=== PATIENT | female | born 1980 | race Caucasian/White ===

== ENCOUNTER 2018-12-29 15:00 | Inpatient (IN) ==
[2018-12-29] MEDS ORDERED: Ringers Solution, Lactated 1,000 ML ONE (16:01)
[2018-12-29] MEDS ORDERED: Metoclopramide 10 MG/2 ML VIAL IVP ONE (16:09)
[2018-12-29] MEDS ORDERED: Famotidine 20 MG/2 ML VIAL IVP ONE (16:09)
[2018-12-29] MEDS ORDERED: CeFAZolin Syr 3,000MG/30 ML 3,000 MG/30 ML SYRINGE IVPB ONE (16:09)
[2018-12-29] MEDS ORDERED: Ringers Solution, Lactated 1,000 ML IVC ONE (16:09)
--- NOTE | 2018-12-29 16:12 | Anesthesia Evaluation PreOp ---
Date of Encounter: 12/29/18 Time of Encounter: 16:00 - Past History Planned Operation: Cardiac History: Denies any Significant Hx Pulmonary History: Denies Any Significant HX SENIOR PAINTER History: Denies Any Significant HX Other Medical History: Thyroid Anesthesia History: No Prior Anesthetic Complications : Yes (39 weeks) Alcohol Use: none Drug use: none Medications and Allergies Allergy/AdvReac Type Severity Reaction Status Date / Time No Known Allergies Allergy Verified 06/07/18 20:07 - Meds/Allergy Pre-op Review Medications Reviewed: Yes Allergies Reviewed: Yes Beta Blockers on Current Med List: No Anesthesia Results - Labs Laboratory Tests 06/07/18 10/16/18 20:15 09:05 Hgb 10.8 L Hct 34.6 L Plt Count 330 Sodium 135 L Potassium 4.0 BUN 11 Creatinine 0.68 Anesthesia Exam Height: 5'8 Weight: 302 lbs NPO (# of Hours): MN Pain Scale: 0 - HEENT Pupil (Motor): Pupils equal, EOMI Mallampati: III Teeth: Normal Oral Opening: Less than or equal to 3 - SENIOR PAINTER LOC: Oriented SENIOR PAINTER Motor: Normal RUE, Normal LUE, Normal RLE, Normal LLE, Normal Face SENIOR PAINTER Sensory: Normal: RUE, LUE, RLE, LLE, Face - Cardiac Rhythm: Regular Murmur: None JVD: No Carotid Bruit: No - Pulmonary Breath Sounds: bilateral Clear Respiratory Effort: Symmetrical Anesthesia Assess/Plan ASA Score: 2 Level of consciousness: Cooperative, Oriented Anesthetic Plan: Spinal Autologous Blood: No Monitoring Plan: Standard Monitors Recovery Plan: PACU (Discussed SAB, possible GA, agrees to proceed)
[2018-12-29] MEDS ORDERED: *HR* OxyCODONE/APAP 5/325 TABLET PO PRN ×2 (16:14→21:05)
[2018-12-29] MEDS ORDERED: Ondansetron 4 MG/2 ML VIAL IVP PRN ×2 (16:14→21:05)
[2018-12-29] MEDS ORDERED: Ibuprofen 400 MG TABLET PO PRN (16:14)
[2018-12-29] MEDS ORDERED: Oxytocin 20 units/ LR 1000 mL 20 UNIT/1,000 ML BAG IVC SCH ×2 (16:15→21:05)
[2018-12-29 16:29] LABS: Basophils % 0.1 %; Eosinophils # 0.1 K/mcL (0.0-0.6); Eosinophils % 0.6 %; Hematocrit 36.3 % (35.3-44.9); Hemoglobin 11.9 g/dL (11.5-15.4); Immature Granulocytes % 0.7 % (0-4); Lymphocytes # 1.4 K/mcL (0.6-4.6); Lymphocytes % 10.3 %; Mean Corpuscular HGB Conc 32.8 g/dL (31.6-35.5); Mean Corpuscular Hemoglobin 30.5 pg (28.0-33.3); Mean Corpuscular Volume 93.1 fL (83.0-100.0); Mean Platelet Volume 10.6 fL (9.4-12.4); Monocytes # 0.7 K/mcL (0.0-1.3); Monocytes % 4.8 %; Neutrophils # 11.5 K/mcL (1.6-8.9); Platelet Count 317 K/mcL (140-400); Red Cell Distribution Width 14.8 % (11.5-14.5); Segmented Neutrophils % 83.5 %; White Blood Count 13.8 K/mcL (4.3-11.1)
[2018-12-29] MEDS ORDERED: *HR* Vasopressin 20 UNIT/ML VIAL IM ONE (16:35)
--- NOTE | 2018-12-29 16:57 | History & Physical Report ---
Date of Encounter: 12/29/18 Time of Encounter: 16:56 24 Hour HP Update - Instructions Instructions: If the History and Physical is less than 30 days old and was completed prior to A.M. admission and or procedure and has NOT been updated on calendar day of procedure please complete this update prior to performing procedure. - Update Patient reports changes in Medical Condition: No Changes in examination, assessment, or condition: No Changes in Medication: No Preop tests/diagnostics Reviewed: Yes Pre-Op MRSA Screen: Negative Surgery Remains Indicated: Yes Consent for Planned Operative Procedure(s) Verified: Yes - Pre-Operative Checklist Preoperative Checklist Indicated: Yes Prophylactic Antibiotic Ordered: Yes Home Medications Include Beta Hui: No Beta Hui Taken Today (Day of Surgery): No Beta Hui Taken Yesterday (Day Prior to Surgery): No Is VTE Prophylaxis Indicated?: Yes
[2018-12-29] MEDS ORDERED: 0.9 % Sodium Chloride Mini Bag 100 ML ONE (16:58)
[2018-12-29] MEDS ORDERED: Acetaminophen IV 1,000 MG/100 ML INFUS..BTL IVPB SCH (18:00)
--- NOTE | 2018-12-29 18:10 | OB/GYN Procedure Note ---
Section - Date of procedure: 12/29/18 Preop diagnosis: other (uterine leiomyoma) Post-op diagnosis: same Procedure: primary low transverse Surgeon: Mickie Howard Blood Loss: 500 Was there an event marketing assistant present: Yes Pharmacist In Charge: Silver Goldstein Private Pilot: Isis Fox Anesthesia Type: Spinal section complications: none Disposition: Post floor - Infant (s) Infant A Infant Delivery Date: 12/29/18 Infant Delivery Time: 17:39 Presentation: vertex Position: unknown Route of delivery: other ( section) Gender: Female Viability: Viable Pounds: 7 Ounces: 3 Gram Weight: 3265 kg at 1 minute: 9 at 5 minutes: 10 Shoulder Dystocia: not encountered Placenta: partial extraction Cord: nuchal reduced - Narrative Narrative: Preoperative diagnosis: Uterine leiomyoma, primary section Postoperative diagnosis: Same anesthesia: Spinal Surgeon Dr. Urban Pharmacist In Charge: Dr. Delgadillo. Asst. present due to large nature of uterine fibroids and risk of hemorrhage Anesthesia: Spinal Findings: Enlarged uterus. 13-14 cm lower uterine segment posterior fibroid emanating emanate down into the pelvis. Normal uterus. Normal ovaries. Normal fallopian tube. Patient was taken to the operating suite and after adequate spinal anesthesia was assured she is prepped and draped in the usual sterile fashion. A penicillin incision was created and taken down through the subcutaneous fat and fascia to the rectus muscles. Rectus muscles were divided in midline and the peritoneal cavity was entered without consequence to bowel or bladder. The pelvis and uterus were systematically inspected and the findings were as noted above. A 5 low transverse incision was made within the uterine wall. Clear fluid was noted. A viable female was atraumatically delivered without difficulty. There was a loose nuchal cord present. Cord was doubly cut and clamped clamped and cut and the baby was handed to the nurses in attendance. Apgars were 9 and 10 at one and 5 minutes respectively. When all placental fragments were swept clean to the uterus the uterus was closed in one length of Vicryl in a running interlocked fashion. Copious irrigation was performed. Surgical site hemostasis was assured. Adnexa and uterus were once again evaluated. The decision was made not to entrap the uterine fibroid due to the risk of bleeding in the location of the fibroid deep within the pelvis. This was reviewed with the patient and her . The uterus was replaced within the abdominal cavity. Again copious irrigation was performed. Surgical site hemostasis was assured. All sponge lap and needle and counts were assured to be correct 2. The fascia was closed in a running fashion. The subcuticular tissue was reapproximated with interrupted sutures. The skin was closed with nixon. At the end of the procedure mother and the baby were both doing very well. Again sponge lap needle and isthmic counts were correct 2. Estimated blood loss was 500 mL.
[2018-12-29] MEDS ORDERED: Acetaminophen 325 MG TABLET PO PRN (21:05)
[2018-12-29] MEDS ORDERED: Metoclopramide 10 MG/2 ML VIAL IVP PRN (21:05)
[2018-12-29] MEDS ORDERED: Simethicone 80 MG TAB.CHEW PO PRN (21:05)
[2018-12-29] MEDS ORDERED: Sennosides 8.6 MG TABLET PO PRN (21:05)
[2018-12-29] MEDS ORDERED: Rho Immune Globulin 1,500 UNIT SYRINGE IM PRN (21:05)
--- NOTE | 2018-12-29 21:14 | Anesthesia Evaluation Post Op ---
Date of Encounter: 12/29/18 Time of Encounter: 19:28 - Vital Signs Vital Signs: VSS throughout pacu stay. - Lungs Lungs: Clear Ascult./Percussion - Airway Airway: Non-obstructed - Cardiovascular Regular Rate - Mental Status Mental Status: Alert & Oriented, Answers Appropriately - Pain Pain Scale: 2 Pain Scale used: Numeric (1 - 10) - Nausea Vomiting Nausea Vomiting: Not Present - Hydration Hydration: NPO, Hoskins catheter - Discharge PostOp Status: Transfer Patient to floor
[2018-12-30] MEDS: cefOXitin 1,000 MG in 0.9 % Sodium Chloride Mini Bag 100 ML IVPB SCH ×2 (01:09→08:09)
[2018-12-30] MEDS: Ibuprofen 600 MG TABLET PO PRN ×4 (01:11→21:42)
[2018-12-30 06:57] LABS: Basophils % 0.1 %; Eosinophils % 0.1 %; Hematocrit 28.1 % (35.3-44.9); Immature Granulocytes % 0.6 % (0-4); Lymphocytes # 0.9 K/mcL (0.6-4.6); Lymphocytes % 6.8 %; Mean Corpuscular HGB Conc 33.1 g/dL (31.6-35.5); Mean Corpuscular Volume 93.7 fL (83.0-100.0); Mean Platelet Volume 10.4 fL (9.4-12.4); Monocytes % 7.2 %; Neutrophils # 11.6 K/mcL (1.6-8.9); Platelet Count 233 K/mcL (140-400); Red Cell Distribution Width 14.9 % (11.5-14.5); Segmented Neutrophils % 85.2 %; White Blood Count 13.7 K/mcL (4.3-11.1)
[2018-12-30 07:01] LABS: Hemoglobin 9.3 g/dL (11.5-15.4)
[2018-12-30] MEDS: Prenatal Vit/FA 1 EACH TABLET PO SCH (08:08)
--- NOTE | 2018-12-30 09:11 | OB/GYN Progress Note ---
Date of Encounter: 12/30/18 Time of Encounter: 09:08 - Assessment and Plan (1) Status post delivery Current Visit: Yes Status: Acute Stable POD #1 Continue current management Anticipate discharge (2) Acute blood loss anemia Current Visit: Yes Status: Acute Continue and discharge home on iron Subjective - Subjective Interval history: Stable, pain well managed, tolerating diet, breast feeding, Patient reports: appetite normal, voiding normally, pain well controlled, ambulating normally [place]: doing well, nursing well Objective - Vital Signs Latest vital signs: Vital Signs Temp Pulse Resp BP Pulse Ox 12/30/18 08:34 98.2 F 91 14 109/63 98 12/30/18 06:23 97.6 F 88 15 108/68 97 12/30/18 00:00 97.9 F 90 15 99/57 96 12/29/18 23:18 98.1 F 94 15 119/73 97 12/29/18 22:05 97.3 F L 98 15 106/73 98 12/29/18 21:30 98.4 F 93 16 122/71 97 12/29/18 21:09 98.1 F 97 15 138/78 97 Intake and Output 12/29/18 12/30/18 12/30/18 23:59 07:59 15:59 Intake Total 100 / 100 Output Total 200 / 200 300 / 300 Balance -200 / -200 -200 / -200 Intake: IV Fluids 100 / 100 Mefoxin 1,000 MG In 0.9 % 100 / 100 Sodium Chloride (Mini-Bag +) 100 ML @ 200 mls/hr IVPB Q8HR [facility] Rx#:[id number] Oral 0 / 0 Output: Catheter 200 / 200 300 / 300 Other: Stool Characteristics Normal for Patient Weight 136.985 kg - Exam Lungs: bilateral: normal Chest: Normal S1, Normal S2 Abdomen: Present: soft, gravid Incision: Present: intact, dressed Uterus: Present: firm (U) - Labs Labs: Laboratory Results - last 24 hr 12/29/18 12/30/18 16:13 06:17 WBC 13.8 H 13.7 H RBC 3.90 3.00 L Hgb 11.9 9.3 L D Hct 36.3 28.1 L MCV 93.1 93.7 MCH 30.5 31.0 MCHC 32.8 33.1 RDW 14.8 H 14.9 H Plt Count 317 233 MPV 10.6 10.4 Immature Gran % 0.7 0.6 Seg Neutrophils % 83.5 85.2 Lymphocytes % 10.3 6.8 Monocytes % 4.8 7.2 Eosinophils % 0.6 0.1 Basophils % 0.1 0.1 Neutrophils # 11.5 H 11.6 H Lymphocytes # 1.4 0.9 Monocytes # 0.7 1.0 Eosinophils # 0.1 0.0 Basophils # 0.0 0.0
[2018-12-31] MEDS: Ibuprofen 600 MG TABLET PO PRN (05:07)
[2018-12-31] MEDS: Prenatal Vit/FA 1 EACH TABLET PO SCH (08:21)
[2018-12-31 08:55] VITALS: BP 109/64
--- NOTE | 2018-12-31 09:14 | Discharge Summary ---
Date of Encounter: 12/31/18 Time of Encounter: 08:54 - Discharge Diagnosis (1) Status post delivery Priority: Primary Status: Acute Comments: Patient meeting day two milestones. Pain well-controlled with prescribed medications. Voiding without difficulty, tolerating regular diet, bleeding light. No bowel movement yet. Anticipate discharge today (2) Breast feeding status of mother Priority: Secondary Status: Acute Comments: support as needed. States she already has a breast pump (3) Acute blood loss anemia Priority: Secondary Status: Acute Comments: Discharge home with daily iron RX. (4) Uterine fibroid Priority: Secondary Status: Acute Comments: Follow up with Dr. Urban as scheduled Qualifiers: Uterine leiomyoma location: unspecified location Qualified Code(s): D25.9 - Leiomyoma of uterus, unspecified - Discharge Medications Prescriptions: New Ferrous Sulfate 325 mg PO DAILY #30 tablet Ibuprofen [Motrin] 600 mg PO Q6HR PRN #60 tablet PRN Reason: Cramping OxyCODONE/APAP 5/325 [Percocet 5/325 MG] 1 each PO Q6H PRN 7 Days #28 tablet PRN Reason: Moderate pain 4-6 Docusate [Colace] 100 mg PO BID #60 capsule Simethicone [Gas-X] 80 mg PO TID PRN tab.chew PRN Reason: Dyspepsia Home Medications: Docusate [Colace] 100 mg PO BID #60 capsule 12/31/18 [Rx] Ferrous Sulfate 325 mg PO DAILY #30 tablet 12/31/18 [Rx] Ibuprofen [Motrin] 600 mg PO Q6HR PRN #60 tablet 12/31/18 [Rx] OxyCODONE/APAP 5/325 [Percocet 5/325 MG] 1 each PO Q6H PRN 7 Days #28 tablet 12/31/18 [Rx] Simethicone [Gas-X] 80 mg PO TID PRN tab.chew 12/31/18 [Rx] Allergies/Adverse Reactions: Allergy/AdvReac Type Severity Reaction Status Date / Time No Known Allergies Allergy Verified 06/07/18 20:07 Data Procedures and tests throughout hospitalization: Laboratory Tests 12/29/18 12/30/18 16:13 06:17 WBC 13.8 H 13.7 H RBC 3.90 3.00 L Hgb 11.9 9.3 L D Hct 36.3 28.1 L MCV 93.1 93.7 MCH 30.5 31.0 MCHC 32.8 33.1 RDW 14.8 H 14.9 H Plt Count 317 233 MPV 10.6 10.4 Immature Gran % 0.7 0.6 Seg Neutrophils % 83.5 85.2 Lymphocytes % 10.3 6.8 Monocytes % 4.8 7.2 Eosinophils % 0.6 0.1 Basophils % 0.1 0.1 Neutrophils # 11.5 H 11.6 H Lymphocytes # 1.4 0.9 Monocytes # 0.7 1.0 Eosinophils # 0.1 0.0 Basophils # 0.0 0.0 Date of admission: 12/29/18 15:07 Primary care physician: Rex Lorenz Discharging clinician: Julia Garcia Anticipated date of discharge: 12/31/18 - Patient Status Disposition: Home, Self-Care Condition: Good Functional capacity at discharge: independent ambulation Overall status at discharge: patient is progressing back to baseline - Discharge Instructions Follow Up With: Mayda Yen DO [Primary Care Provider] - Mickie Urban MD [Partnered Physician] - - Diet and Activity Activity: resume usual activities as tolerated Diet: regular diet Hospital Course Reason for admission: section, IUP at term Delivery: section Episiotomy: none Laceration: none Other procedures: none complications: none Discharge diagnosis: IUP at term delivered baby: female Hospital course: Date of procedure: 12/29/18 Preop diagnosis: other (uterine leiomyoma) Post-op diagnosis: same Procedure: primary low transverse Surgeon: Mickie Urban Quantitated Blood Loss: 500 Was there an social media assistant present: Yes Soap Boiler: Silver Goldstein [employer] Manager: Isis Fox Anesthesia Type: Spinal section complications: none Disposition: Post floor - (s) Infant A Delivery Date: 12/29/18 Infant Delivery Time: 17:39 Presentation: vertex Position: unknown Route of delivery: other ( section) Gender: Female Viability: Viable Pounds: 7 Ounces: 3 Gram Weight: 3265 kg at 1 minute: 9 at 5 minutes: 10 Shoulder Dystocia: not encountered Placenta: partial extraction Cord: nuchal reduced - Narrative Narrative: Preoperative diagnosis: Uterine leiomyoma, primary section Postoperative diagnosis: Same anesthesia: Spinal Surgeon Dr. Urban Soap Boiler: Dr. Delgadillo. Asst. present due to large nature of uterine fibroids and risk of hemorrhage Anesthesia: Spinal Findings: Enlarged uterus. 13-14 cm lower uterine segment posterior fibroid emanating emanate down into the pelvis. Normal uterus. Normal ovaries. Normal fallopian tube. Patient was taken to the operating suite and after adequate spinal anesthesia was assured she is prepped and draped in the usual sterile fashion. A penicillin incision was created and taken down through the subcutaneous fat and fascia to the rectus muscles. Rectus muscles were divided in midline and the peritoneal cavity was entered without consequence to bowel or bladder. The pelvis and uterus were systematically inspected and the findings were as noted above. A 5 low transverse incision was made within the uterine wall. Clear fluid was noted. A viable female was atraumatically delivered without difficulty. There was a loose nuchal cord present. Cord was doubly cut and clamped clamped and cut and the baby was handed to the nurses in attendance. Apgars were 9 and 10 at one and 5 minutes respectively. When all placental fragments were swept clean to the uterus the uterus was closed in one length of Vicryl in a running interlocked fashion. Copious irrigation was performed. Surgical site hemostasis was assured. Adnexa and uterus were once again evaluated. The decision was made not to entrap the uterine fibroid due to the risk of bleeding in the location of the fibroid deep within the pelvis. This was reviewed with the patient and her . The uterus was replaced within the abdominal cavity. Again copious irrigation was performed. Surgical site hemostasis was assured. All sponge lap and needle and counts were assured to be correct 2. The fascia was closed in a running fashion. The subcuticular tissue was reapproximated with interrupted sutures. The skin was closed with nixon. At the end of the procedure mother and the baby were both doing very well. Again sponge lap needle and isthmic counts were correct 2. Estimated blood loss was 500 mL. Time Attestation: Total time spent providing and/or coordinating discharge services: Time Spent: Less than 30 minutes - VTE Documentation of Mechanical Device: Intermittent pneumatic compression device Exam - Constitutional Vitals: Temp Pulse Resp BP Pulse Ox 97.8 F 93 16 137/78 98 12/30/18 20:56 12/30/18 20:56 12/30/18 20:56 12/30/18 20:56 12/30/18 20:56 General appearance IM: A&O X 3, pleasant, no acute distress, answers questions appropriately - Respiratory Respiratory exam: Present: CTAB. Absent: respiratory distress - Cardiovascular Cardiovascular exam IM: Present: RRR, +S1, +S2. Absent: irregular rhythm - GI/Abdominal GI/Abdominal exam IM: normal bowel sounds, soft Incision: normal, dry, intact (nixon) - Rectal Rectal exam: deferred - External exam: normal external exam Uterine Tone: Firm Uterus Position: At Umbilicus, Midline - Extremities Exam Extremities exam IM: Present: full ROM, normal capillary refill, normal inspection. Absent: calf tenderness - Neurological Exam Neurological exam: alert, normal gait, oriented X3
== END 2018-12-31 13:15 | disposition home or self-care (01) | DRG 787 ==
LOC: 1NENULAB 15:07 → 1NENUOBS 20:59
PROVIDERS: ADMIT Obstetrics & Gynecology; ATTEND Obstetrics & Gynecology